=== PATIENT | female | born 1990 | race Caucasian/White ===

== ENCOUNTER 2016-11-08 07:01 | Day surgery (SDC) | payer OTHER ==
[~2016-11-08] VITALS: Ht 170.2 cm; Wt 97.1 kg
[~2016-11-08 07:01] MED LIST: ANTIVERT25 MG PO; AUGMENTIN875 MG PO; EFFEXOR37.5 MG PO; ELAVIL10 MG PO; FIORICET,ESG1 TABLET PO; FLEXERIL10 MG PO; FLINTSTONES1 TABLET PO; MIRALAX17 GM PO; MIRENA52 MG IY; MOTRIN600 MG PO; NAPROSYN500 MG PO; NASONEX17 GM BOTH NARES; NORCO 5/3251 TABLET PO; PERCOCET 5/31 TABLET PO; PRILOSEC OTC20 MG PO; ROBITUSSIN AC,T10 ML PO; TIZANIDINE HCL4 MG PO; TOPAMAX50 MG PO; TOPIRAMATE50 MG PO; TRAMADOL HCL50 MG PO; TUMS500 MG PO; ULTRAM50 MG PO; VENLAFAXINE HC150 M1 PO; VENLAFAXINE HCL75 M3 PO; ZANTAC75 M1 PO; ZOFRAN ODT4 MG PO; ZOFRAN ODT8 MG PO
== END 2016-11-08 09:00 | disposition home or self-care (01) ==
LOC: PAIN 07:01 → SDC 07:45 → PAIN 09:00
PROC: 3E0S33Z Introduction of Anti-inflammatory into Epidural Space, Percutaneous Approach (ICD-10-PCS; principal; 2016-11-08)
DX: M54.16 Radiculopathy, lumbar region (principal); F41.9 Anxiety disorder, unspecified; M51.26 Other intervertebral disc displacement, lumbar region; G62.9 Polyneuropathy, unspecified; K21.9 Gastro-esophageal reflux disease without esophagitis; E66.9 Obesity, unspecified; Z68.33 Body mass index [BMI] 33.0-33.9, adult; G47.30 Sleep apnea, unspecified; Z82.61 Family history of arthritis; Z82.49 Family history of ischemic heart disease and other diseases of the circulatory system; Z81.8 Family history of other mental and behavioral disorders; Z82.0 Family history of epilepsy and other diseases of the nervous system; Z83.49 Family history of other endocrine, nutritional and metabolic diseases; Z88.8 Allergy status to other drugs, medicaments and biological substances; Z88.1 Allergy status to other antibiotic agents; Z88.2 Allergy status to sulfonamides
CPT/HCPCS: J1100; J2250; J3010

== ENCOUNTER 2016-12-06 07:12 | Day surgery (SDC) | payer OTHER ==
[~2016-12-06] VITALS: Ht 170.2 cm; Wt 97.1 kg
[~2016-12-06 07:12] MED LIST changes: +TYLENOL EXTRA500 MG PO
== END 2016-12-06 08:57 | disposition home or self-care (01) ==
LOC: PAIN 07:12 → SDC 07:45 → PAIN 07:45
PROC: 3E0S33Z Introduction of Anti-inflammatory into Epidural Space, Percutaneous Approach (ICD-10-PCS; principal; 2016-12-06)
DX: M54.16 Radiculopathy, lumbar region (principal); F41.9 Anxiety disorder, unspecified; M51.26 Other intervertebral disc displacement, lumbar region; F32.9 Major depressive disorder, single episode, unspecified; G43.909 Migraine, unspecified, not intractable, without status migrainosus; M19.90 Unspecified osteoarthritis, unspecified site; G62.9 Polyneuropathy, unspecified; K21.9 Gastro-esophageal reflux disease without esophagitis; K76.0 Fatty (change of) liver, not elsewhere classified; E66.9 Obesity, unspecified; Z68.33 Body mass index [BMI] 33.0-33.9, adult; G47.30 Sleep apnea, unspecified; Z82.61 Family history of arthritis; Z81.8 Family history of other mental and behavioral disorders; Z82.49 Family history of ischemic heart disease and other diseases of the circulatory system; Z82.0 Family history of epilepsy and other diseases of the nervous system; Z88.8 Allergy status to other drugs, medicaments and biological substances; Z88.1 Allergy status to other antibiotic agents; Z88.2 Allergy status to sulfonamides
CPT/HCPCS: J1100; J2250; J3010

== ENCOUNTER 2017-04-18 08:14 | Day surgery (SDC) | payer OTHER ==
[~2017-04-18] VITALS: Ht 170.2 cm; Wt 113.6 kg
[~2017-04-18 08:14] MED LIST changes: +NEURONTIN300 MG PO; +TOPAMAX100 MG PO; +ZANAFLEX2 MG PO
== END 2017-04-18 09:36 | disposition home or self-care (01) ==
LOC: PAIN 08:14 → SDC 09:00 → PAIN 09:00
DX: M47.26 Other spondylosis with radiculopathy, lumbar region (principal); K21.9 Gastro-esophageal reflux disease without esophagitis; F41.8 Other specified anxiety disorders; G57.82 Other specified mononeuropathies of left lower limb; Z88.0 Allergy status to penicillin; G47.30 Sleep apnea, unspecified
CPT/HCPCS: J1030; J2250; J3010; S0020

== ENCOUNTER 2017-04-25 07:35 | Day surgery (SDC) | payer OTHER ==
[~2017-04-25] VITALS: Ht 170.2 cm; Wt 113.6 kg
== END 2017-04-25 09:15 | disposition home or self-care (01) ==
LOC: PAIN 07:35 → SDC 08:00 → PAIN 08:00
DX: M47.26 Other spondylosis with radiculopathy, lumbar region (principal); M51.16 Intervertebral disc disorders with radiculopathy, lumbar region; G62.9 Polyneuropathy, unspecified; G57.82 Other specified mononeuropathies of left lower limb; K21.9 Gastro-esophageal reflux disease without esophagitis; Z88.2 Allergy status to sulfonamides; F41.9 Anxiety disorder, unspecified
CPT/HCPCS: J1030; J2250; J3010; S0020

== ENCOUNTER 2017-06-06 11:06 | Day surgery (SDC) | payer OTHER ==
[~2017-06-06] VITALS: Ht 170.2 cm; Wt 113.4 kg
[~2017-06-06 11:06] MED LIST changes: +FLONASE ALLERG9.9 ML BOTH NARES
== END 2017-06-06 12:44 | disposition home or self-care (01) ==
LOC: PAIN 11:06 → SDC 11:30 → PAIN 11:30
DX: M47.26 Other spondylosis with radiculopathy, lumbar region (principal); M51.16 Intervertebral disc disorders with radiculopathy, lumbar region; E66.9 Obesity, unspecified; Z68.39 Body mass index [BMI] 39.0-39.9, adult; F41.8 Other specified anxiety disorders; K21.9 Gastro-esophageal reflux disease without esophagitis; E78.5 Hyperlipidemia, unspecified; G47.30 Sleep apnea, unspecified; Z88.2 Allergy status to sulfonamides
CPT/HCPCS: J1030; J2250; J3010; S0020

== ENCOUNTER 2017-06-13 11:17 | Day surgery (SDC) | payer OTHER ==
[~2017-06-13] VITALS: Ht 170.2 cm; Wt 113.4 kg
== END 2017-06-13 12:41 | disposition home or self-care (01) ==
LOC: PAIN 11:17 → SDC 11:30 → PAIN 12:41
DX: M47.26 Other spondylosis with radiculopathy, lumbar region (principal); M51.16 Intervertebral disc disorders with radiculopathy, lumbar region; F41.8 Other specified anxiety disorders; K21.9 Gastro-esophageal reflux disease without esophagitis; G47.30 Sleep apnea, unspecified; E66.9 Obesity, unspecified; Z68.39 Body mass index [BMI] 39.0-39.9, adult; Z88.2 Allergy status to sulfonamides
CPT/HCPCS: J1030; J2250; J3010; S0020

== ENCOUNTER 2018-01-26 12:51 | Emergency (ER) | payer OTHER ==
[~2018-01-26] VITALS: Ht 170.2 cm; Wt 115.9 kg
[~2018-01-26 12:51] MED LIST changes: +AMOX TR-K CLV1 EAC4 PO; +DONNATAL1 TABLET PO; +ZOFRAN4 MG PO
[2018-01-26] MEDS ORDERED: MOTRIN600 MG PO (14:57)
[2018-01-26] MEDS ORDERED: ANECREAM30 GM TP (14:57)
[2018-01-26] MEDS ORDERED: ANUSOL-HC21 GM PR (14:57)
[2018-01-26 15:44] VITALS: BP 114/80
== END 2018-01-26 15:45 | disposition home or self-care (01) ==
LOC: EME 12:51
DX: K64.5 Perianal venous thrombosis (principal); K64.4 Residual hemorrhoidal skin tags; K59.00 Constipation, unspecified; Z88.2 Allergy status to sulfonamides
CPT/HCPCS: 99281; 99283

== ENCOUNTER 2018-03-08 21:09 | Emergency (ER) | payer OTHER ==
[~2018-03-08] VITALS: Ht 170.2 cm; Wt 118.9 kg
[~2018-03-08 21:09] MED LIST changes: +ANECREAM30 GM TP; +ANUSOL-HC21 GM PR
[2018-03-08 21:22] LABS: HEMATOCRIT 40.5 % (36.0-46.0); HEMOGLOBIN 13.8 G/DL (11.9-15.5); MCHC 34.1 G/DL (30.0-36.0); PLATELET COUNT 403 K/uL (156-360); RBC DIS.WIDTH-CV 13.3 % (11.8-14.6); RBC DIS.WIDTH-SD 42.7 % (39-53); WHITE BLOOD COUNT 15.2 K/uL (4.1-10.2)
[2018-03-08 21:33] LABS: ALBUMIN 4.2 g/dL (3.2-4.8); CHLORIDE 106 mEq/L (99-109); POTASSIUM 3.7 mEq/L (3.7-5.4); SODIUM 140 mEq/L (136-147)
[2018-03-08 21:35] LABS: GLUCOSE 77 mg/dL (70-99)
[2018-03-08 21:36] LABS: TOTAL PROTEIN 7.6 g/dL (6.4-8.3)
[2018-03-08 21:37] LABS: TOTAL BILIRUBIN 0.3 mg/dL (0.0-1.0)
[2018-03-08 21:39] LABS: ALKALINE PHOSPHATASE 109 IU/L (3-129); CREATININE 0.8 mg/dL (0.6-1.3); GFR ESTIMATE (CALCULATED) > 59 mL/min/
[2018-03-08 21:40] LABS: UREA NITROGEN (BUN) 14 mg/dL (9-23)
[2018-03-08 21:41] LABS: AST (GOT) 12 IU/L (2-34)
[2018-03-08 21:42] LABS: ALT (GPT) 14 IU/L (3-49)
[2018-03-08 21:48] LABS: QUANTITATIVE HCG < 4.0 MIU/ML
[2018-03-08 22:15] VITALS: BP 122/80
== END 2018-03-08 22:16 | disposition home or self-care (01) ==
LOC: EME 21:09
DX: N64.52 Nipple discharge (principal); Z88.2 Allergy status to sulfonamides
CPT/HCPCS: 80053; 84702; 85027; 99281; 99283